=== PATIENT | female | born 1980 | race American Indian/Alaskan Native ===

== ENCOUNTER 2018-06-07 10:16 | Day surgery (SDC) | payer MEDICAID ==
[2018-06-07] MEDS ORDERED: LACTATED RINGERS 1,000 ML IV SCH ×3 (11:36→16:00)
[2018-06-07] MEDS ORDERED: XYLOCAINE MPF 2% ONE (13:11)
[2018-06-07] MEDS ORDERED: ZOFRAN ONE (13:11)
[2018-06-07] MEDS ORDERED: ZEMURON IV ONE (13:11)
[2018-06-07] MEDS ORDERED: SUBLIMAZE ONE (13:11)
[2018-06-07] MEDS ORDERED: DIPRIVAN 10 MG/ML IV ONE (13:11)
--- NOTE | 2018-06-07 15:01 | Anesthesia Day of Surgery ---
Anesthesia Day of Surgery - Day of Surgery Patient Examined: Yes Patient H&P Reviewed: Yes Patient is NPO: Yes
[2018-06-07] MEDS ORDERED: ZOFRAN IV PRN (15:02)
--- NOTE | 2018-06-07 15:02 | Anesthesia Consultation ---
Anesthesia Consult and Med Hx Date of service: 06/07/18 - Airway Anesthetic Teeth Evaluation: Good ROM Head & Neck: Adequate Mental/Hyoid Distance: Adequate Mallampati Class: Class II Intubation Access Assessment: Probably Good - Pulmonary Exam CTA: Yes - Cardiac Exam Cardiac Exam: RRR - Pre-Operative Health Status ASA Pre-Surgery Classification: ASA3 Proposed Anesthetic Plan: General (Morbid Obesity, Gerd controlled) - Pulmonary Hx Smoking: Yes (Former) - Cardiovascular System Hx Coronary Artery Disease: No (high cholesterol) - Central Nervous System Hx Psychiatric Problems: No - Gastrointestinal Hx Gastroesophageal Reflux Disease: Yes (abdominal pain) - Other Systems Hx Cancer: No Hx Obesity: Yes (BMI 36.3)
[2018-06-07] MEDS ORDERED: NACL 0.9% IR ONE (15:13)
[2018-06-07] MEDS ORDERED: TORADOL ONE (15:47)
[2018-06-07] MEDS ORDERED: BLOXIVERZ ONE (15:47)
[2018-06-07] MEDS ORDERED: ROBINUL ONE (15:47)
[2018-06-07] MEDS: DILAUDID IV PRN ×2 (16:20→17:25)
[2018-06-07] MEDS ORDERED: PERCOCET 5/325 PO PRN (16:42)
--- NOTE | 2018-06-07 17:30 | Post Anesthesia Evaluation ---
- Post Anesthesia Evaluation Patient Participated: Yes Airway Patent: Yes Stable Respiratory Function: Yes Nausea/Vomiting: No Temp > 96.8F: Yes Pain Manageable: Yes Adequeate Hydration: Yes Anesthesia Complications: No
[2018-06-07 17:56] VITALS: BP 112/58
--- NOTE | 2018-06-07 19:25 | Operative Report ---
Operative Report Operative Report: Preoperative diagnosis: Chronic pelvic pain. Postoperative diagnosis: 1. Omental adhesions to the left pelvic sidewall. 2. Filshie clips malposition. Procedure: 1. Diagnostic laparoscopy. 2. Lysis of adhesions. 3. Bilateral salpingotomy. 4. Removal of Filshie clips. Surgeon: Dr. Rizo Risk And Insurance Consultant: none Anesthesia: general EBL: negligible IVF: RL 1 liter Complications: none Intraoperative findings: Normal uterus, fallopian tubes and ovaries bilaterally. Procedure details: Risks, benefits, and alternatives of the procedure were discussed in detail with the patient which included but not limited to risk of infection, hemorrhage requiring blood transfusion, injury to the bowel or bladder and blood vessels. The patient expressed understanding, her questions were answered, and she gave informed consent. The patient was taken to the operating room with an IV fluid using Ringer's lactate. In the operating room, she was placed in a dorsal supine position and given general anesthesia. She was then placed on the stirrups in a dorsal lithotomy position. The perineum, vagina, cervix, and abdomen were washed and she was prepared and draped in usual sterile fashion. A bivalve speculum was placed in the vagina and the anterior lip of the cervix was grasped with a single-tooth tenaculum. A HUMI uterine manipulator was advanced into the uterine cavity to provide a means of manipulating the uterus and the procedure. The speculum and tenaculum were then removed. Attention was then turned to the patient's abdomen where a 5 mm skin incision was made in the infraumbilical fold. The Veress needle was introduced into the peritoneal cavity while tenting the abdominal wall. Intraperitoneal placement was confirmed by using a water-filled syringe and by noticing a drop in the intra-abdominal pressure with CO2 gas insufflation. The trocar and sleeves were then advanced without difficulty into the abdomen where intraperitoneal placement was confirmed using laparoscope. Pneumoperitoneum was achieved with 4 L of CO2 gas. A second 10 mm skin incision was made in the left lower quadrant and a 10 mm trocar and sleeves were then advanced into the abdominal cavity under direct visualization with the laparoscope. A quick survey of the anatomy revealed a normal uterus and ovaries bilaterally, no endometriosis or powder- burn lesion was found anywhere in the pelvis. A Filshie clip was found hanging from the right fallopian tube and pulling on it. The left fallopian tube was intact with no clip in it. The clip was found in the anterior cul-de-sac. Adhesions of the omentum to the left pelvic sidewall. The left tube was grasped with Enseal, cauterized at 2 locations, and transected . The area of the right fallopian tube where the Filshie clip was hanging was grasped with Enseal, cauterized and transected in a similar fashion. Both clips were removed from the abdomen using Endobag. Good hemostasis was confirmed. The ports were then opened to release to CO2 gas from the abdomen. The instruments were then removed. The ports were closed with 3.0 vicryl sutures. Steri-Strip and Tegaderm were placed. The HUMI uterine manipulator was then removed from the uterine cavity. The counts of laps, needles, sponges, and instruments were correct 2. The patient tolerated the procedure well. She was awakened from anesthesia and taken to the recovery room in a stable condition.
== END 2018-06-07 10:17 | disposition home or self-care (01) ==
LOC: OR 10:16
PROVIDERS: ATTEND Obstetrics & Gynecology
DX: T83.428A Displacement of other prosthetic devices, implants and grafts of genital tract, initial encounter (principal); N73.6 Female pelvic peritoneal adhesions (postinfective); K21.9 Gastro-esophageal reflux disease without esophagitis; E78.00 Pure hypercholesterolemia, unspecified; E66.9 Obesity, unspecified; Z68.36 Body mass index [BMI] 36.0-36.9, adult; Z98.51 Tubal ligation status; Z87.891 Personal history of nicotine dependence; Z98.890 Other specified postprocedural states; Y83.1 Surgical operation with implant of artificial internal device as the cause of abnormal reaction of the patient, or of later complication, without mention of misadventure at the time of the procedure
CPT/HCPCS: 49320; 49329; 58679; J1170; J1885; J2405; J2704; J2710; J3010; J7120